=== PATIENT | female | born 1980 | race Caucasian/White ===

== ENCOUNTER 2017-08-27 22:24 | Emergency (ER) | payer SELFPAY ==
[2017-08-27 23:51] VITALS: BP 98/60
[2017-08-28] MEDS ORDERED: IBUPROFEN 600 MG TABLET PO ONE (01:08)
--- NOTE | 2017-08-28 01:14 | ER Document Report ---
ED Headache - General Chief Complaint: Headache >24 hrs old Stated Complaint: CHEST TIGHTNESS Time Seen by Provider: 08/28/17 00:48 Mode of Arrival: Ambulatory Information source: Patient TRAVEL OUTSIDE OF THE [place] IN LAST 30 DAYS: No - HPI Patient complains to provider of: Headache, Other - Cough Notes: Patient arrives with complaints of headache for the last 4-5 days. Headaches been constant. It was not a sudden onset/thunderclap headache. The patient denies any head injury, blurred vision, blood thinners, numbness, tingling, weakness, neck stiffness. She does report she has had URI symptoms for the last several days and has had a cough for the last few days as well. She states that occasionally when she takes a deep breath or coughs she has pain in her chest, she denies any chest pain otherwise. She denies any shortness of breath. She denies any recent long trips or surgeries, leg pain or leg swelling , hormones, history of DVT or PE, cancer. She denies any sore throat or rash. No abdominal pain. No nausea, vomiting, diarrhea. Her son is being seen for similar symptoms and her had similar symptoms last week but is getting better. - Related Data Allergies/Adverse Reactions: sulfamethoxazole [From Septra DS] Allergy (Severe, Verified 07/06/14 10:31) chest pains, swelling trimethoprim [From Septra DS] Allergy (Severe, Verified 07/06/14 10:31) chest pain, swelling citalopram hydrobromide [From Celexa] Allergy (Intermediate, Verified 07/06/14 10:31) Facial swelling duloxetine HCl [From Cymbalta] Allergy (Intermediate, Verified 07/06/14 10:31) Facial swelling Past Medical History - Social History Smoking Status: Current Every Day Smoker Chew tobacco use (# tins/day): No Frequency of alcohol use: None Drug Abuse: None Family History: Reviewed & Not Pertinent Patient has suicidal ideation: No Patient has homicidal ideation: No - Past Medical History Cardiac Medical History: Denies: Hx Coronary Artery Disease, Hx Heart Attack, Hx Hypertension Pulmonary Medical History: Reports: Hx Bronchitis, Hx Pneumonia Denies: Hx Asthma, Hx COPD Neurological Medical History: Denies: Hx Cerebrovascular Accident, Hx Seizures Renal/ Medical History: Denies: Hx Peritoneal Dialysis GI Medical History: Reports: Hx Gastroesophageal Reflux Disease Musculoskeltal Medical History: Denies Hx Arthritis Psychiatric Medical History: Reports: Hx Depression Past Surgical History: Reports: Hx Tonsillectomy. Denies: Hx Hysterectomy - Immunizations Hx Diphtheria, Pertussis, Tetanus Vaccination: Yes Review of Systems - Review of Systems -: Yes All other systems reviewed and negative Physical Exam - Vital signs Vitals: Temp Pulse Resp BP Pulse Ox 98.1 F 75 16 98/60 L 100 08/27/17 23:41 08/27/17 23:41 08/27/17 23:41 08/27/17 23:41 08/27/17 23:41 - Notes Notes: GENERAL: alert, cooperative, nontoxic, no distress. HEAD: normocephalic, atraumatic EYES: conjunctiva pink without discharge, no external redness or swelling. Pupils are equal, round, reactive to light. EARS: no external swelling, no external redness NOSE: atraumatic, no external swelling MOUTH/THROAT: mucous membranes moist and pink, posterior pharynx without erythema, swelling, exudate. No trismus or drooling. NECK: soft, supple, full range of motion, no meningismus. CHEST: no distress, lungs clear and equal throughout. No wheezing, rales, rhonchi. CARDIAC: regular rate and rhythm, no murmur, normal capillary refill, normal pulses. No peripheral edema noted. BACK: full range of motion, no CVA tenderness. EXTREMITIES: full range of motion of all extremities. No redness, no swelling. NEURO: alert and oriented x 3, cranial nerves II through XII are grossly intact. Upper and lower extremities are equal throughout. Normal sensation. No focal deficits, full range of motion of all extremities. normal finger to nose. NIH stroke score of 0. PYSCH: appropriate mood, affect. Patient is cooperative. SKIN: pink, warm, dry, no rash. Course - Re-evaluation Re-evalutation: 08/28/17 02:07 Patient is nontoxic appearing with stable vitals. She had intermittent headache for the last 5 days. This was not a sudden onset/thunderclap headache and she has a normal exam with no fever no neck stiffness no sign of meningitis. Likely viral in nature. She is also complaining of cough and pain in her chest only with cough. She has no PE risk factors and is PERC rule negative. Chest x-ray shows no acute abnormality with no pneumonia. She has a normal neurological exam. She has no sign of meningitis, subarachnoid hemorrhage. This point the patient will be discharged home with a prescription for Voltaren. Follow-up with her doctor if not better in 1 week, sooner for worsening symptoms, high fever, neck stiffness, numbness, tingling, weakness, difficulty breathing, or any further concerns. The patient's emergency department workup and current diagnosis were explained to the patient and or family. Follow-up instructions were provided. Medications if prescribed were discussed. Instructions for when to return to the emergency department including specific worrisome symptoms were discussed with the patient and/or family. - Vital Signs Vital signs: Temp Pulse Resp BP Pulse Ox 98.1 F 75 16 98/60 L 100 08/27/17 23:41 08/27/17 23:41 08/27/17 23:41 08/27/17 23:41 08/27/17 23:41 Discharge - Discharge Clinical Impression: Viral syndrome Condition: Stable Disposition: HOME, SELF-CARE Instructions: Viral Syndrome ([facility]) Additional Instructions: Take medications as prescribed. Drink plenty of fluids. Follow-up if not better in 1 week, sooner for worsening symptoms, severe headache, blurred or loss vision, numbness, tingling, weakness, difficulty breathing, or any further concerns. Prescriptions: Diclofenac Sodium [Voltaren 50 Mg Tablet.] 50 mg PO BID #20 tablet. Forms: Smoking Cessation Education Referrals: [facility] [Provider Group] - Follow up as needed
--- NOTE | 2017-08-28 01:57 | RADIOLOGY REPORT (SQ) ---
EXAM DESCRIPTION: CHEST PA/LAT CLINICAL HISTORY: cough COMPARISON: 09/25/2015 FINDINGS: Frontal and lateral views of the chest. The cardiomediastinal silhouette has normal size and contour. No consolidation, pneumothorax, or pleural effusion. Pectus carinatum. Upper abdominal soft tissues are unremarkable. IMPRESSION: 1. No acute pulmonary process identified.
== END 2017-08-28 02:20 | disposition home or self-care (01) ==
LOC: ER 22:24
DX: B34.9 Viral infection, unspecified (principal); R51 Headache; R05 Cough; R07.1 Chest pain on breathing; F17.200 Nicotine dependence, unspecified, uncomplicated; Z88.1 Allergy status to other antibiotic agents; Z88.8 Allergy status to other drugs, medicaments and biological substances; Z88.6 Allergy status to analgesic agent; Z87.01 Personal history of pneumonia (recurrent)
CPT/HCPCS: 71046; 99284

== ENCOUNTER 2018-03-23 20:32 | Emergency (ER) | payer SELFPAY ==
--- NOTE | 2018-03-23 21:10 | ER Document Report ---
ED General - General Mode of Arrival: Ambulatory Information source: Patient TRAVEL OUTSIDE OF THE [place] IN LAST 30 DAYS: No <EDUAR MATHEWS - Last Filed: 03/23/18 22:42> <MOOSEPAULACOSMO - Last Filed: 03/23/18 23:28> - General Chief Complaint: Anxiety Stated Complaint: CHEST TIGHTNESS Time Seen by Provider: 03/23/18 20:48 Notes: Patient is a 37 year old female with anxiety presents to the emergency department complaining chest heaviness and palpitations onset today. Patient states she has had a very stressful day and received a cigarette from a coworker. She states she was later told the cigarette was laced with marijuana but feels it was laced with something else because her symptoms were onset shortly after. She states she has a lot of anxiety attacks, although her symptoms today did not feel like her normal anxiety attack. Patient states she received Ativan and fluids from EMS although she does not feel better. At bedside she states her symptoms are improved although she does not feel normal further stating she is having some chest discomfort and her body feels heavy. Patient denies trouble breathing, nausea or vomiting. (EDUAR MATHEWS) - Related Data Allergies/Adverse Reactions: sulfamethoxazole [From Septra DS] Allergy (Severe, Verified 07/06/14 10:31) chest pains, swelling trimethoprim [From Septra DS] Allergy (Severe, Verified 07/06/14 10:31) chest pain, swelling citalopram hydrobromide [From Celexa] Allergy (Intermediate, Verified 07/06/14 10:31) Facial swelling duloxetine HCl [From Cymbalta] Allergy (Intermediate, Verified 07/06/14 10:31) Facial swelling Past Medical History - General Information source: Patient - Social History Smoking Status: Current Every Day Smoker Chew tobacco use (# tins/day): No Frequency of alcohol use: None Drug Abuse: None Family History: Reviewed & Not Pertinent Patient has suicidal ideation: No Patient has homicidal ideation: No Pulmonary Medical History: Reports: Hx Bronchitis, Hx Pneumonia GI Medical History: Reports: Hx Gastroesophageal Reflux Disease Psychiatric Medical History: Reports: Hx Depression - anxiety Past Surgical History: Reports: Hx Tonsillectomy - Immunizations Hx Diphtheria, Pertussis, Tetanus Vaccination: Yes <EDUAR MATHESW - Last Filed: 03/23/18 22:42> Review of Systems - Review of Systems Constitutional: No symptoms reported EENT: No symptoms reported Cardiovascular: See HPI, Chest pain Respiratory: No symptoms reported Gastrointestinal: No symptoms reported Genitourinary: No symptoms reported Female Genitourinary: No symptoms reported Musculoskeletal: See HPI Skin: No symptoms reported Hematologic/Lymphatic: No symptoms reported Neurological/Psychological: No symptoms reported -: Yes All other systems reviewed and negative <EDUAR MATHEWS - Last Filed: 03/23/18 22:42> Physical Exam <EDUAR MATHEWS - Last Filed: 03/23/18 22:42> <COSMO BOWIE - Last Filed: 03/23/18 23:28> - Vital signs Vitals: Resp Pulse Ox 15 100 03/23/18 20:44 03/23/18 20:44 - Notes Notes: GENERAL: Alert, appears anxious. No acute distress. HEAD: Normocephalic, atraumatic. EYES: Pupils equal, round, and reactive to light. Extraocular movements intact. ENT: Oral mucosa moist, tongue midline. NECK: Full range of motion. Supple. Trachea midline. LUNGS: Clear to auscultation bilaterally, no wheezes, rales, or rhonchi. No respiratory distress. HEART: Regular rate and rhythm. No murmurs, gallops, or rubs. ABDOMEN: Soft, non-tender. Non-distended. Bowel sounds present in all 4 quadrants. EXTREMITIES: Moves all 4 extremities spontaneously. No edema, radial and dorsalis pedis pulses 2/4 bilaterally. No cyanosis. NEUROLOGICAL: Alert and oriented x3. Normal speech. PSYCH: Appears anxious. SKIN: Warm, dry, normal turgor. No rashes or lesions noted. (EDUAR MATHEWS) Course - Laboratory Result Diagrams: 03/23/18 21:50 03/23/18 21:50 <EDUAR MATHEWS - Last Filed: 03/23/18 22:42> - Laboratory Result Diagrams: 03/23/18 21:50 03/23/18 21:50 <COSMO BOWIE - Last Filed: 03/23/18 23:28> - Re-evaluation Re-evalutation: 03/23/18 23:11 CBC shows anemia with a hemoglobin of 9.8 is unremarkable, CMP unremarkable, cardiac enzymes negative, T3 very slightly low, TSH and T4 are unremarkable, urine drug screen shows benzodiazepines which she is prescribed otherwise unremarkable, urinalysis shows 2+ bacteria but 5 squamous epithelial cells and she has no symptoms of urinary tract infection. Alcohol undetectable. No evidence of acute coronary syndrome. Suspect this is a reaction to the marijuana. Unable to determine if there is anything else in the cigarette. At present patient is feeling much better, is not tachycardic, is not hypoxic, is not tachypneic. Patient will be discharged to home. Recommended not to borrow cigarettes from anybody else unless she knows exactly what they are. 03/23/18 23:18 When I went to discuss this with the patient the patient is not in her room, the patient's son is in the room stating that the patient left to get him food from the cafeteria and will be back. 03/23/18 23:28 Patient now back in the room, feeling much better, agreeable to being discharged home. (COSMO BOWIE) - Vital Signs Vital signs: Temp Pulse Resp BP Pulse Ox 23 H 104/64 93 03/23/18 23:00 03/23/18 22:01 03/23/18 23:00 - Laboratory Laboratory results interpreted by me: 03/23/18 03/23/18 21:50 21:50 Hgb 9.8 L Hct 29.9 L MCV 77 L MCH 25.0 L RDW 16.5 H Free T3 pg/mL 2.76 L - EKG Interpretation by Me Additional EKG results interpreted by me: 03/23/18 22:50 EKG shows sinus rhythm at a rate of 79, no, no ST segment elevations or depressions, there are slight T wave inversions in V2, T wave flattening in aVL per my interpretation. (COSMO BOWIE) Discharge <EDUAR MATHEWS - Last Filed: 03/23/18 22:42> <COSMO BOWIE - Last Filed: 03/23/18 23:28> - Discharge Clinical Impression: Palpitations Condition: Stable Disposition: HOME, SELF-CARE Additional Instructions: Palpitations (Irregular/Rapid Heartrate) Irregular or rapid heartbeat is called "palpitation." To diagnose the cause of palpitation, we have to "catch it in the act" with an EKG. Sinus Tachycardia: This is a rapid (but NORMAL) rhythm that can be due to fever, pain, anxiety, lack of sleep, over-exertion, or drugs. Cold medications, caffeine, and diet pills are particularly likely to cause tachycardia. Usually , all that's required is rest, reassurance, and avoiding caffeine, alcohol, nicotine, and unnecessary medicines. Paroxysmal Atrial Tachycardia (PAT): This abnormally rapid heartbeat is caused by a "short circuit" in the electrical system of the heart. It is not dangerous, unless other heart disease is present. These attacks of PAT may occur occasionally for years. Medication is available for treatment. Paroxysmal Atrial Fibrillation or Atrial Flutter: This is irregular electrical activity in the upper heart chamber. These abnormal rhythms often occur with valve disease or in hearts damaged by hardening of the arteries. These rhythms usually require further testing, for example a cardiac echo. Premature Beats: Extra beats occur more commonly after caffeine, nicotine , alcohol, cold pills, diet pills. Emotional stress or fatigue also provoke them. Extra beats are only dangerous when heart disease is present. They usually need no treatment. If they're frequent, or if evidence of heart disease develops, medication can be given to suppress them. If we were unable to "catch" the palpitations on EKG, you should try to get an EKG immediately if the symptoms begin again. Contact the physician at once if you develop persistent lightheadedness, shortness of breath, chest pain , or swelling of the ankles. Chest Pain of Unclear Cause The exact cause of your chest pain isn't clear. Fortunately, there is no evidence of a dangerous medical condition. Further testing may be required to find the source of the pain. Most often, we find that this pain is coming from the chest wall -- the muscles or rib joints in the chest. But chest pain can come from the lung and lung lining, the esophagus, the heart valves or heart lining, and even the stomach or gallbladder. Rest. Eat lightly until the pain is gone. We may prescribe medicine for pain and inflammation. You should call the physician immediately if the pain radiates to the shoulder, jaw or arms; if you start to run a fever or develop a cough; or if you develop shortness of breath, or other new or alarming symptoms. Referrals: TOM PETERS JR, MD [Primary Care Provider] - Follow up as needed Scribe Attestation: 03/23/18 23:28 I personally performed the services described in the documentation, reviewed and edited the documentation which was dictated to the scribe in my presence, and it accurately records my words and actions. (COSMO BOWIE) Scribe Documentation - Scribe Written by Gabe:: Gabe Mckeon, 03/23/2018 21:12 acting as scribe for :: Jc <EDUAR MATHEWS - Last Filed: 03/23/18 22:42>
[2018-03-23 21:17] LABS: APPEARANCE,URINE CLEAR; BILIRUBIN,URINE NEGATIVE (NEGATIVE); COLOR,URINE STRAW; GLUCOSE, URINE NEGATIVE (NEGATIVE); KETONES,URINE NEGATIVE (NEGATIVE); LEUKOCYTE ESTERASE,URINE NEGATIVE (NEGATIVE); NITRITE,URINE NEGATIVE (NEGATIVE); PROTEIN,URINE NEGATIVE (NEGATIVE); URINE SPECIFIC GRAVITY 1.005; UROBILINOGEN,URINE NEGATIVE mg/dL (<2.0)
[2018-03-23 21:34] LABS: URINE AMPHETAMINES SCREEN NEGATIVE; URINE BARBITURATES SCREEN NEGATIVE; URINE BENZODIAZEPINES SCREEN UNCONFIRMED POSITIVE; URINE COCAINE SCREEN NEGATIVE; URINE MARIJUANA (THC) SCREEN NEGATIVE; URINE METHADONE SCREEN NEGATIVE; URINE PHENCYCLIDINE SCREEN NEGATIVE
[2018-03-23 22:00] LABS: ABSOLUTE LYMPHOCYTES (AUTO) 2.1 10^3/uL (0.5-4.7); ABSOLUTE MONOCYTES (AUTO) 0.5 10^3/uL (0.1-1.4); ABSOLUTE NEUT (AUTO) 6.8 10^3/uL (1.7-8.2); BASOPHILS % (AUTO) 0.5 % (0-2); EOSINOPHILS % (AUTO) 0.3 % (0-6); HEMATOCRIT 29.9 % (36.0-47.0); HEMOGLOBIN 9.8 g/dL (12.0-15.5); LYMPHOCYTES % (AUTO) 21.8 % (13-45); MEAN CORPUSCULAR HGB CONC 32.7 g/dL (32.0-36.0); MEAN CORPUSCULAR VOLUME 77 fl (80-97); MONOCYTES % (AUTO) 5.5 % (3-13); PLATELET COUNT 258 10^3/uL (150-450); RED BLOOD COUNT 3.91 10^6/uL (3.72-5.28); RED CELL DISTRIBUTION WIDTH 16.5 % (11.5-14.0); SEGMENTED NEUTROPHILS % (AUTO) 71.9 % (42-78); TOTAL CELLS COUNTED % (AUTO) 100 %; WHITE BLOOD COUNT 9.4 10^3/uL (4.0-10.5)
[2018-03-23 22:18] LABS: ALANINE AMINOTRANSFERASE 31 U/L (9-52); ALBUMIN 3.9 g/dL (3.5-5.0); ALKALINE PHOSPHATASE 43 U/L (38-126); ANION GAP 10 (5-19); ASPARTATE AMINO TRANSFERASE 19 U/L (14-36); BILIRUBIN,DIRECT 0.2 mg/dL (0.0-0.4); BILIRUBIN,TOTAL 0.2 mg/dL (0.2-1.3); BLOOD UREA NITROGEN 11 mg/dL (7-20); CARBON DIOXIDE 27 mmol/L (22-30); CHLORIDE 105 mmol/L (98-107); CREATINE KINASE 41 U/L (30-135); GLUCOSE 95 mg/dL (75-110); POTASSIUM 3.9 mmol/L (3.6-5.0); SODIUM 141.9 mmol/L (137-145); TOTAL PROTEIN 6.5 g/dL (6.3-8.2)
[2018-03-23 22:34] LABS: FREE T3 2.76 pg/mL (2.77-5.27); FREE T4 (FREE THYROXINE) 0.89 ng/dL (0.78-2.19)
[2018-03-23 22:47] LABS: THYROID STIMULATING HORMONE 1.59 uIU/mL (0.47-4.68)
--- NOTE | 2018-03-23 22:49 | EKG REPORT ---
SEVERITY:- BORDERLINE ECG - SINUS RHYTHM LOW VOLTAGE THROUGHOUT BORDERLINE T ABNORMALITIES, ANT-LAT LEADS : Confirmed by: Sanford Quinones MD 23-Mar-2018 22:49:03
[2018-03-23 23:00] LABS: ALCOHOL < 10 mg/dL (NONE DETECTED); TROPONIN I < 0.012 ng/mL
[2018-03-23 23:08] VITALS: BP 104/64
== END 2018-03-23 23:26 | disposition home or self-care (01) ==
LOC: ER 20:32
DX: F41.9 Anxiety disorder, unspecified (principal); Z79.899 Other long term (current) drug therapy; R00.2 Palpitations; D64.9 Anemia, unspecified; F17.210 Nicotine dependence, cigarettes, uncomplicated; Z88.1 Allergy status to other antibiotic agents; Z88.8 Allergy status to other drugs, medicaments and biological substances
CPT/HCPCS: 36415; 80053; 80307; 81001; 81025; 82550; 82553; 84439; 84443; 84481; 84484; 85025; 93005; 93010; 99284

== ENCOUNTER 2019-06-10 09:36 | Emergency (ER) | payer SELFPAY ==
[2019-06-10] MEDS ORDERED: ASPIRIN 81 MG TABLET, CHEWABLE PO ONE (10:06)
--- NOTE | 2019-06-10 10:06 | ER Document Report ---
ED Medical Screen (RME) - General Mode of Arrival: Ambulatory Information source: Patient TRAVEL OUTSIDE OF THE [place] IN LAST 30 DAYS: No - Related Data Home Medications: Xanax <DAWIT STEIN - Last Filed: 06/10/19 10:03> - General Mode of Arrival: Ambulatory Information source: Patient - HPI Patient complains to provider of: chest tightness/frequency Onset: Other - pt. with h/o anxiety and eating disorder with c/o 2 week h/o chest tightness and occasional lightheadedness. Also, with c/o frequency but no dysuria. <CHANDAN VANEGAS - Last Filed: 06/10/19 11:08> - General Chief Complaint: Chest Pain Stated Complaint: CHEST/BACK PAIN/NAUSEA/SHORTNESS OF BREATH Time Seen by Provider: 06/10/19 10:03 Primary Care Provider: TOM PETERS JR, MD [NO LOCAL MD] - Follow up as needed Notes: 38-year-old female presents to ED for complaint of chest pain, low back pain, headache, frequent urination for about 2 weeks. She states she has also been nauseated. Last menstrual period started June 03, 2019. She states she uses vape, drinks wine monthly and no drugs. States only medical history is a eating disorder. She states she has had chest pain in the past but is never had any cardiac problems. Is alert oriented respirations regular nonlabored speaking in full sentences. I have greeted and performed a rapid initial assessment of this patient. A comprehensive ED assessment and evaluation of the patient, analysis of test results and completion of medical decision making process will be conducted by an additional ED providers. (DAWIT STEIN) - Related Data Allergies/Adverse Reactions: sulfamethoxazole [From Septra DS] Allergy (Severe, Verified 07/06/14 10:31) chest pains, swelling trimethoprim [From Septra DS] Allergy (Severe, Verified 07/06/14 10:31) chest pain, swelling citalopram hydrobromide [From Celexa] Allergy (Intermediate, Verified 07/06/14 10:31) Facial swelling duloxetine HCl [From Cymbalta] Allergy (Intermediate, Verified 07/06/14 10:31) Facial swelling Past Medical History - Social History Frequency of alcohol use: None Drug Abuse: None - Past Medical History Cardiac Medical History: Denies: Hx Coronary Artery Disease, Hx Heart Attack, Hx Hypertension Pulmonary Medical History: Reports: Hx Bronchitis, Hx Pneumonia Denies: Hx Asthma, Hx COPD Neurological Medical History: Denies: Hx Cerebrovascular Accident, Hx Seizures Renal/ Medical History: Denies: Hx Peritoneal Dialysis GI Medical History: Reports: Hx Gastroesophageal Reflux Disease Musculoskeltal Medical History: Denies Hx Arthritis Psychiatric Medical History: Reports: Hx Depression - anxiety Past Surgical History: Reports: Hx Tonsillectomy. Denies: Hx Hysterectomy - Immunizations Hx Diphtheria, Pertussis, Tetanus Vaccination: Yes <DAWIT STEIN - Last Filed: 06/10/19 10:03> - General Information source: Patient - Social History Family history: None <CHANDAN VANEGAS - Last Filed: 06/10/19 11:08> Review of Systems - Review of Systems Constitutional: No symptoms reported EENT: No symptoms reported Cardiovascular: See HPI, Chest pain, Lightheaded Respiratory: No symptoms reported Gastrointestinal: No symptoms reported Musculoskeletal: No symptoms reported Neurological/Psychological: No symptoms reported -: Yes All other systems reviewed and negative <CHANDAN VANEGAS - Last Filed: 06/10/19 11:08> Physical Exam - General General appearance: Appears well In distress: None - HEENT Head: Normocephalic Pupils: PERRL Pharynx: Normal Neck: Normal - Respiratory Respiratory status: No respiratory distress Breath sounds: Normal Chest palpation: Normal - Cardiovascular Rhythm: Regular Heart sounds: Normal auscultation Murmur: No - Abdominal Inspection: Normal Bowel sounds: Normal Tenderness: Nontender Organomegaly: No organomegaly - Extremities General upper extremity: Normal inspection General lower extremity: Normal inspection - Neurological Neuro grossly intact: Yes Cognition: Normal Orientation: AAOx4 Speech: Normal Cranial nerves: Normal Cerebellar coordination: Normal Motor strength normal: LUE, RUE, LLE, RLE Sensory: Normal <CHANDAN VANEGAS - Last Filed: 06/10/19 11:08> - Vital signs Vitals: Temp Pulse Resp BP Pulse Ox 98.4 F 90 16 116/65 100 06/10/19 09:50 06/10/19 09:50 06/10/19 09:50 06/10/19 09:50 06/10/19 09:50 Course - Laboratory Result Diagrams: 06/10/19 10:22 06/10/19 10:22 - EKG Interpretation by Me EKG shows normal: Sinus rhythm Rate: Normal Rhythm: NSR - nsr with non-specific st-t changes and no acute change <CHANDAN VANEGAS - Last Filed: 06/10/19 11:08> - Vital Signs Vital signs: Temp Pulse Resp BP Pulse Ox 98.4 F 90 16 116/65 100 06/10/19 09:50 06/10/19 09:50 06/10/19 09:50 06/10/19 09:50 06/10/19 10:23 - Laboratory Laboratory results interpreted by me: 06/10/19 06/10/19 10:22 10:22 MCV 98 H MCH 34.1 H Urine Ascorbic Acid 20 H Doctor's Discharge <DAWIT STEIN - Last Filed: 06/10/19 10:03> <CHANDAN VANEGAS - Last Filed: 06/10/19 11:08> - Discharge Referrals: TOM PETERS JR, MD [NO LOCAL MD] - Follow up as needed
[2019-06-10] MEDS ORDERED: ONDANSETRON 4 MG TAB.RAPDIS PO ONE (10:07)
[2019-06-10 10:40] LABS: ABSOLUTE LYMPHOCYTES (AUTO) 1.7 10^3/uL (0.5-4.7); ABSOLUTE MONOCYTES (AUTO) 0.4 10^3/uL (0.1-1.4); ABSOLUTE NEUT (AUTO) 3.4 10^3/uL (1.7-8.2); BASOPHILS % (AUTO) 0.4 % (0-2); EOSINOPHILS % (AUTO) 0.9 % (0-6); HEMATOCRIT 42.1 % (36.0-47.0); HEMOGLOBIN 14.7 g/dL (12.0-15.5); LYMPHOCYTES % (AUTO) 31.1 % (13-45); MEAN CORPUSCULAR HEMOGLOBIN 34.1 pg (27.0-33.4); MEAN CORPUSCULAR HGB CONC 34.8 g/dL (32.0-36.0); MEAN CORPUSCULAR VOLUME 98 fl (80-97); MONOCYTES % (AUTO) 6.3 % (3-13); PLATELET COUNT 228 10^3/uL (150-450); RED CELL DISTRIBUTION WIDTH 12.9 % (11.5-14.0); SEGMENTED NEUTROPHILS % (AUTO) 61.3 % (42-78); TOTAL CELLS COUNTED % (AUTO) 100 %; WHITE BLOOD COUNT 5.5 10^3/uL (4.0-10.5)
[2019-06-10 10:42] LABS: APPEARANCE,URINE CLEAR; BILIRUBIN,URINE NEGATIVE (NEGATIVE); COLOR,URINE YELLOW; GLUCOSE, URINE NEGATIVE (NEGATIVE); KETONES,URINE NEGATIVE (NEGATIVE); PROTEIN,URINE NEGATIVE (NEGATIVE); URINE SPECIFIC GRAVITY 1.006; UROBILINOGEN,URINE NEGATIVE mg/dL (<2.0)
--- NOTE | 2019-06-10 10:47 | RADIOLOGY REPORT (SQ) ---
EXAM DESCRIPTION: CHEST 2 VIEWS COMPLETED DATE/TIME: 06/10/2019 10:34 am REASON FOR STUDY: chest pain COMPARISON: None. EXAM PARAMETERS: NUMBER OF VIEWS: two views TECHNIQUE: Digital Frontal and Lateral radiographic views of the chest acquired. RADIATION DOSE: NA LIMITATIONS: none FINDINGS: LUNGS AND PLEURA: No opacities, masses or pneumothorax. No pleural effusion. MEDIASTINUM AND HILAR STRUCTURES: No masses or contour abnormalities. HEART AND VASCULAR STRUCTURES: Heart normal size. No evidence for failure. BONES: No acute findings. HARDWARE: None in the chest. OTHER: No other significant finding. IMPRESSION: NO ACUTE RADIOGRAPHIC FINDING IN THE CHEST. TECHNICAL DOCUMENTATION: JOB ID: [id number] [employer]- All Rights Reserved Reading location - IP/workstation name: [email or web address]
[2019-06-10 10:57] LABS: ALBUMIN 4.1 g/dL (3.5-5.0); ALKALINE PHOSPHATASE 51 U/L (38-126); ANION GAP 7 (5-19); ASPARTATE AMINO TRANSFERASE 22 U/L (14-36); BILIRUBIN,DIRECT 0.1 mg/dL (0.0-0.4); BILIRUBIN,TOTAL 0.5 mg/dL (0.2-1.3); BLOOD UREA NITROGEN 11 mg/dL (7-20); CALCIUM 9.3 mg/dL (8.4-10.2); CARBON DIOXIDE 30 mmol/L (22-30); CHLORIDE 102 mmol/L (98-107); GLUCOSE 79 mg/dL (75-110); POTASSIUM 4.6 mmol/L (3.6-5.0)
[2019-06-10 11:07] LABS: NT PRO BNP 58 pg/mL (<125)
[2019-06-10 11:08] LABS: TROPONIN I < 0.012 ng/mL
--- NOTE | 2019-06-10 11:17 | ER Document Report ---
ED Cardiac - General Chief Complaint: Chest Pain Stated Complaint: CHEST/BACK PAIN/NAUSEA/SHORTNESS OF BREATH Time Seen by Provider: 06/10/19 10:03 Primary Care Provider: TOM PETERS JR, MD [NO LOCAL MD] - Follow up as needed Mode of Arrival: Ambulatory Information source: Patient TRAVEL OUTSIDE OF THE [place] IN LAST 30 DAYS: No - HPI Patient complains to provider of: Chest tightness - pt . with 2 week h/o chest tightness and occasionaly lightheadedness. Also c/o frequency but no dysuria - Related Data Allergies/Adverse Reactions: sulfamethoxazole [From Septra DS] Allergy (Severe, Verified 07/06/14 10:31) chest pains, swelling trimethoprim [From Septra DS] Allergy (Severe, Verified 07/06/14 10:31) chest pain, swelling citalopram hydrobromide [From Celexa] Allergy (Intermediate, Verified 07/06/14 10:31) Facial swelling duloxetine HCl [From Cymbalta] Allergy (Intermediate, Verified 07/06/14 10:31) Facial swelling Home Medications: Xanax Past Medical History - Social History Smoking Status: Current Every Day Smoker Frequency of alcohol use: None Drug Abuse: None Family History: Reviewed & Not Pertinent Patient has suicidal ideation: No Patient has homicidal ideation: No - Past Medical History Cardiac Medical History: Denies: Hx Coronary Artery Disease, Hx Heart Attack, Hx Hypertension Pulmonary Medical History: Reports: Hx Bronchitis, Hx Pneumonia Denies: Hx Asthma, Hx COPD Neurological Medical History: Denies: Hx Cerebrovascular Accident, Hx Seizures Renal/ Medical History: Denies: Hx Peritoneal Dialysis GI Medical History: Reports: Hx Gastroesophageal Reflux Disease Musculoskeletal Medical History: Denies Hx Arthritis Psychiatric Medical History: Reports: Hx Depression - anxiety Past Surgical History: Reports: Hx Tonsillectomy. Denies: Hx Hysterectomy - Immunizations Hx Diphtheria, Pertussis, Tetanus Vaccination: Yes Review of Systems - Review of Systems Constitutional: No symptoms reported EENT: No symptoms reported Cardiovascular: See HPI, Chest pain, Lightheaded Respiratory: No symptoms reported Gastrointestinal: No symptoms reported Musculoskeletal: No symptoms reported Neurological/Psychological: No symptoms reported -: Yes All other systems reviewed and negative Physical Exam - Vital signs Vitals: Temp Pulse Resp BP Pulse Ox 98.4 F 90 16 116/65 100 06/10/19 09:50 06/10/19 09:50 06/10/19 09:50 06/10/19 09:50 06/10/19 09:50 - General General appearance: Appears well In distress: None - HEENT Head: Normocephalic Pupils: PERRL Mucous membranes: Normal Pharynx: Normal Neck: Normal - Respiratory Respiratory status: No respiratory distress Chest status: Nontender Breath sounds: Normal - Cardiovascular Rhythm: Regular Heart sounds: Normal auscultation Murmur: No - Abdominal Bowel sounds: Normal Tenderness: Nontender - Extremities General upper extremity: Normal inspection General lower extremity: Normal inspection - Neurological Neuro grossly intact: Yes Cognition: Normal Orientation: AAOx4 Speech: Normal Cranial nerves: Normal Motor strength normal: LUE, RUE, LLE, RLE Sensory: Normal Course - Re-evaluation Re-evalutation: 06/10/19 11:16 pt's exam unchanged at re-evaluation -- expressed desire to go home - Vital Signs Vital signs: Temp Pulse Resp BP Pulse Ox 98.4 F 90 16 116/65 100 06/10/19 09:50 06/10/19 09:50 06/10/19 09:50 06/10/19 09:50 06/10/19 10:23 - Laboratory Result Diagrams: 06/10/19 10:22 06/10/19 10:22 Laboratory results interpreted by me: 06/10/19 06/10/19 10:22 10:22 MCV 98 H MCH 34.1 H Urine Ascorbic Acid 20 H - Diagnostic Test Radiology reviewed: Reports reviewed - nad - EKG Interpretation by Vt EKG shows normal: Sinus rhythm Rate: Normal Rhythm: NSR - nsr with non-specific st-t changes and no acute change Discharge - Discharge Clinical Impression: Chest pain Qualifiers: Chest pain type: other chest pain Qualified Code(s): R07.89 - Other chest pain; R07.8 - Other chest pain Condition: Stable Disposition: HOME, SELF-CARE Instructions: Chest Pain of Unclear Cause ([facility]) Additional Instructions: rest, ocntinue any current meds, return if worse Referrals: TOM PETERS JR, MD [NO LOCAL MD] - Follow up as needed KIRSTY ROSAS MD [ACTIVE STAFF] - Follow up as needed
[2019-06-10 11:19] VITALS: BP 96/66
--- NOTE | 2019-06-11 23:57 | EKG REPORT ---
SEVERITY:- ABNORMAL ECG - SINUS RHYTHM LOW VOLTAGE THROUGHOUT : Confirmed by: Saulo King 11-Jun-2019 23:56:48
== END 2019-06-10 11:28 | disposition home or self-care (01) ==
LOC: ER 09:36
DX: R07.89 Other chest pain (principal); F41.9 Anxiety disorder, unspecified; R42 Dizziness and giddiness; R35.0 Frequency of micturition; M54.5 Low back pain; R51 Headache; R11.0 Nausea; R06.02 Shortness of breath; F17.200 Nicotine dependence, unspecified, uncomplicated
CPT/HCPCS: 93005; 36415; 83690; 83735; 84703; 85025; 80053; 81001; 84484; 83880; 71046; 93010; S0119; 99285